=== PATIENT | female | born 1950 ===

== ENCOUNTER → 2016-11-03 | Day surgery (SDC) | payer OTHER ==
[2016-11-03] VITALS (12 sets, daily range): BP systolic 114–137; BP diastolic 71–79
[~2016-11-03] VITALS: Ht 165.1 cm; Wt 104.3 kg
[~2016-11-03] MED LIST: CHOLESTEROL MED; DM MEDICATION; LR 1000ml 1,000 ML IVLG SCH; LR 1000ml ONE; Lidocaine 1% MPF 10mg/ml 5ml ONE
--- NOTE | 2016-11-03 10:54 | Short Stay Surgery H&P ---
History of Present Illness History of Present Illness Chief Complaint History of GERDs and abdominal pains. JORJE Parikh is a 66 year old female who was admitted on for Abdominal Pain, Gerd Patient History Allergies: Coded Allergies: No Known Allergies (Unverified , 11/02/16) PAST MEDICAL HISTORY: (1) Hyperlipidemia (2) Diabetes Past Surgeries: Social History: Review of Systems Cardiovascular: Reports: no symptoms Respiratory: Reports: no symptoms Skeletal: Reports: no symptoms Gastrointestinal: Reports: gastro esophageal reflux disease Genitourinary: Reports: no symptoms Neurologic: Reports: no symptoms Endocrine: Reports: no symptoms Physical Exam Vital Signs Last Vital Signs Date Time Temp Pulse Resp B/P Pulse Ox O2 Delivery O2 Flow Rate FiO2 11/03/16 10:44 97.6 66 18 114/73 98 Room Air Skin: normal HENT: normal Heart: normal Lungs: normal Abdomen: abnormal Extremities: normal Genitourinary: normal Plan Plan of Care Upper GI endoscopy with biopsy. Preop Interventions None. Summary of Findings See the reports. Final Diagnosis: Attestation Are the patient's medical conditions optimized for surgery? Attestation Response: yes CARRIE CRAWFORD Nov 03, 2016 10:54
--- NOTE | 2016-11-03 10:55 | Pre-Procedure Note/Attestation ---
Pre-Procedure Note/Attestation Complete Prior to Procedure Planned Procedure: left Procedure Narrative: Endoscopic examination of the uppoer GI tract. Indications for Procedure Pre-Operative Diagnosis: R/O Peptic ulcer/gastritis/esophagitis. Attestation I attest that I discussed the nature of the procedure; its benefits; risks and complications; and alternatives (and the risks and benefits of such alternatives ), prior to the procedure, with the patient (or the patient's legal internet sales representative). I attest that, if there was a reasonable possibility of needing a blood transfusion, the patient (or the patient's legal internet sales representative) was given the [place] [employer] standardized written summary, pursuant to the Isai[employer] Imel[employer] Blood Safety Act ([place] Health and Safety Code # 1645, as amended). I attest that I re-evaluated the patient just prior to the surgery and that there has been no change in the patient's H&P, except as documented below: CARRIE CRAWFORD Nov 03, 2016 10:55
--- NOTE | 2016-11-03 11:26 | Anethesia Preoperative Eval ---
Anesthesia Pre-op PMH/ROS General Date of Evaluation: Nov 03, 2016 Time of Evaluation: 11:26 Anesthesiologist: paddy ASA Score: ASA 3 Mallampati Score Class I : Soft palate, uvula, fauces, pillars visible Class II: Soft palate, uvula, fauces visible Class III: Soft palate, base of uvula visible Class IV: Only hard plate visible Mallampati Classification: Class III Surgeon: chris Diagnosis: abd pain Surgical Procedure: EGD Anesthesia History: none Family History: no anesthesia problems Allergies: Coded Allergies: No Known Allergies (Unverified , 11/02/16) Medications: see eMAR Past Medical History Cardiovascular: Reports: HTN Pulmonary: Denies: COPD, FANNIE, asthma, other Gastrointestinal/Genitourinary: Reports: GERD Endocrine: Reports: DM Hematology/Immune: Denies: DVT, anemia, bleeding disorder, other Musculoskeletal/Integumentary: Denies: DDD, DJD, OA, RA, edema, other Other: obesity Anesthesia Pre-op Phys. Exam Physician Exam Last Vital Signs Date Time Temp Pulse Resp B/P Pulse Ox O2 Delivery O2 Flow Rate FiO2 11/03/16 10:44 97.6 66 18 114/73 98 Room Air Constitutional: NAD Neurologic: CN 2-12 intact Cardiovascular: RRR Respiratory: CTA Gastrointestinal: S/NT/ND Airway Exam Mallampati Classification 3 Mallampati Score: Class III MO: limited ROM: full Dentures: no lower, no upper Anesthesia Pre-op A/P Studies Pre-op Studies: EKG - sb Risk Assessment & Plan Plan: mac Status Change Before Surgery: No Pre-Antibiotics Drug: none CASSIA BOLTON CRNA Nov 03, 2016 11:26
--- NOTE | 2016-11-03 11:27 | Endoscopy Procedure Note ---
Endoscopy Procedure Note Indication for Procedure: Abdominal pains/GERDs. Procedures Performed: EGD - Edema of pyloric channel at 11 o'clock, biopsied, otherwise normal upper GI endoscopy. Biopsy obtained per random from gastric body. Specimen: yes Pt Tolerated Procedure Well: Yes Estimated Blood Loss: none Anesthesiologist: DR. Dutta Anesthesia: moderate sedation Medication Given: see anesthesia record Implant(s) used?: No 50 yrs or older w/o bx or poly: Not Applicable 10yrs. F/U not recommended: Not Applicable If not recommended, why?: Med reason:<3 yrs.: System Reason:<3 yrs.: CARRIE CRAWFORD Nov 03, 2016 11:27
--- NOTE | 2016-11-03 11:28 | Discharge Instructions ---
Discharge Instructions Discharge Instructions Follow up with: See the doctor in office after two weeks. For Congestive Heart Failure Reminder Report to your physician any weight gain of 5 pounds or more in one week. CARRIE CRAWFORD Nov 03, 2016 11:28
--- NOTE | 2016-11-03 11:34 | Immediate Post-Op Evaluation ---
Immediate Post-Op Evalulation Immediate Post-Op Evalulation Procedure: EGD Date of Evaluation: Nov 03, 2016 Time of Evaluation: 11:34 IV Fluids: 300 Blood Pressure Systolic: 111 Blood Pressure Diastolic: 70 Pulse Rate: 63 Respiratory Rate: 14 O2 Sat by Pulse Oximetry: 100 Temperature (Fahrenheit): 97.8 Nausea: No Vomiting: No Complications none Patient Status: awake, reacts, patent Hydration Status: adequate Drug: none CASSIA BOLTON CRNA Nov 03, 2016 11:34
--- NOTE | 2016-11-03 19:28 | Operative Note - Dictated ---
DATE OF OPERATION: 11/03/2016 PROCEDURE: Esophagogastroduodenoscopy with biopsy. This patient was referred by Dr. Branden Montilla. PREOPERATIVE DIAGNOSIS: Abdominal pain and epigastric pain. POSTOPERATIVE DIAGNOSIS: Mild edema of pyloric channel at the 11 o'clock. Otherwise, complete normal study up to upper gastrointestinal endoscopy. Biopsy was taken from the pyloric channel and mid gastric area per random. MEDICATION USED: Per Dr. Dutta, anesthesiologist. INSTRUMENT: GIF Olympus upper gastrointestinal video endoscope. DESCRIPTION OF PROCEDURE: The patient after in the arriving endoscopy unit was told about risks and benefits of the procedure, which she accepted and signed the informed consent. She was then put on the left lateral decubitus position. After adequate IV sedation, scope was gently passed through the cricopharyngeal area, was lodged into the upper esophagus, and gradually advanced towards gastroesophageal junction. The entire length of the esophagus was completely normal. No evidence of inflammatory process, ulceration, stricture, polyps tumors etc. was found. No exudates. There was no Maldonado's or hiatal hernia either. At this time, the scope was gradually advanced into the stomach. Gastric cavity was distended and the areas of the fundus and the body and the antrum were examined in gradual fashion, which revealed normal findings without any evidence of pathology. One random biopsy from gastric body obtained and subsequently, the scope was pushed toward the pyloric channel, which revealed evidence of edema at the 11 o'clock, but no ulcers. It looked benign. One biopsy from this edematous area was obtained and subsequently, the scope was introduced into the duodenal bulb. First and second portion of duodenum were found to be completely normal. At this time, the scope was pulled out and the procedure was terminated. The patient tolerated the procedure well and left the endoscopy room in good condition. Said Neno Caldwell DR: RONNY JOB#: [id number] CC:
--- NOTE | 2016-11-03 20:08 | Pre-op HX & Phy Repo 2 SIG ---
DATE OF ADMISSION: 11/03/2016 REFERRING PHYSICIAN: The patient was referred by Dr. Branden Montilla. He is not on the staff. HISTORY OF PRESENT ILLNESS: The applicant is a 66-year-old female, who is being seen prior to undergoing the procedure of upper GI endoscopy, for which she has been scheduled to receive evaluation of her GI symptoms. The patient basically complaining of pain located over the upper part of the abdomen and she had been treated with multiple medications including anti-inflammatory agents and NSAIDs in the past subsequent to a work injury. She reported that subsequent to taking these medications, she started to feel pressure and pain over the upper part of the abdomen and also she started to gain weight. The amount of weight is reported to be somewhat 25 pounds. The applicant does have symptoms of gastroesophageal reflux significantly and also does suffer from regurgitation, but denies any history of dysphagia, GI bleeding, hematemesis, melena, or hematochezia. As I mentioned, the applicant has been treated with multiple medications including nonsteroidal anti-inflammatory agents such as ibuprofen and Motrin in the past, which she continued up to March 2016. After that time, she stopped it. She also reports that she does have regular bowel movements without any evidence of constipation or diarrhea. 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 As such, she reported that she had injuries to her neck, head, lower back, and shoulder along with over the head due to repetitive injuries and one fall when she slipped down in 2010. She was subsequently seen by multiple physicians and received medications of analgesics and nonsteroidal anti-inflammatory agents as I mentioned. PAST MEDICAL HISTORY: Hyperlipidemia and diabetes. PAST SURGICAL HISTORY: Hysterectomy. ALLERGIES: None significant. CHILDHOOD DISEASES: Usual. HABITS: The patient denies smoking cigarettes or drinking alcohol. Does not use illicit drugs. REVIEW OF SYSTEMS: Basically history of present illness. PHYSICAL EXAMINATION: VITAL SIGNS: Stable. GENERAL: An alert and well-oriented female, does not seem to be in acute distress. She looks overweight. HEENT: Normocephalic. Pupils equal in size and reactive to light and accommodation. No visible jaundice. NECK: Supple. No JVD or thyromegaly. CHEST: Clear to auscultation. No rales or rhonchi heard. HEART: S1 and S2 normal. Regular rhythm. ABDOMEN: Soft, but there are areas of tenderness over upper part of the abdomen and it is also obese, but there is no organomegaly. No masses noted. EXTREMITIES: Unremarkable. PRELIMINARY IMPRESSION: 1. Epigastric pain of uncertain etiology, rule out NSAID-induced gastropathy, peptic ulcer disease, duodenal ulcer, erosive gastritis, rule out esophagitis. 2. Morbid obesity. 3. Diabetes mellitus. 4. Hyperlipidemia. RECOMMENDATIONS: The applicant seems to be stable at this time to undergo the procedure of upper GI endoscopy, for which she has been scheduled. She understands the risks and benefits and will sign the consent. Said Neno Caldwell DR: MONICA JOB#: [id number] CC: SAW
== END | disposition home or self-care (01) ==
LOC: GAS 09:22
DX: K29.50 Unspecified chronic gastritis without bleeding (principal); B96.81 Helicobacter pylori [H. pylori] as the cause of diseases classified elsewhere; K21.9 Gastro-esophageal reflux disease without esophagitis; E11.9 Type 2 diabetes mellitus without complications; E78.5 Hyperlipidemia, unspecified; E66.01 Morbid (severe) obesity due to excess calories; Z90.710 Acquired absence of both cervix and uterus
CPT/HCPCS: 43239; 82962; J7120; 94003; 94150